=== PATIENT | male | born 1965 | race Caucasian/White ===

== ENCOUNTER 2022-09-24 22:07 | Emergency (ER) | payer MEDICAID ==
[~2022-09-24] VITALS: Ht 172.7 cm; Wt 68.0 kg
[2022-09-24 22:07] VITALS: BP 152/100
--- NOTE | 2022-09-24 22:07 | NUR ---
SIGIFREDO ORDONEZM MOTEL WITH C/O OS PAIN. PT WAS GOING TO PLUCK A NOSE HAIR AND MISSED, ACCIDENTALLY POKING SELF IN EYE. INCIDENT OCCURED THIS AM. PT KEEPING OS CLOSED
--- NOTE | 2022-09-24 22:11 | NUR ---
BIBA TO BED #12
[2022-09-24] MEDS ORDERED: TETRACAINE HCL/PF 0.5% OPTH 4 ML BTL OP ONE (22:55)
[2022-09-24] MEDS ORDERED: FLUORESCEIN OPTH STRIP 1 MG OP ONE (22:55)
[2022-09-24] MEDS ORDERED: ERYT5OIN51 OP (23:41)
[2022-09-24] MEDS ORDERED: IBUP-2213 PO (23:42)
[2022-09-24] MEDS ORDERED: ACET-10509 PO (23:42)
== END 2022-09-24 23:50 | disposition home or self-care (01) ==
LOC: MED 22:07
DX: S05.02XA Injury of conjunctiva and corneal abrasion without foreign body, left eye, initial encounter (principal); Z79.899 Other long term (current) drug therapy; W50.4XXA Accidental scratch by another person, initial encounter; Y93.89 Activity, other specified; Y92.89 Other specified places as the place of occurrence of the external cause; Y99.8 Other external cause status
CPT/HCPCS: 99283

== ENCOUNTER 2023-09-04 01:05 | Emergency (ER) | payer MEDICAID ==
[~2023-09-04] VITALS: Ht 172.7 cm; Wt 68.0 kg
[2023-09-04 01:05] VITALS: BP 132/90; PULSE 92; RESP 17; TEMP 98.2; O2SAT 98
[~2023-09-04 01:05] MED LIST: ACET-10509 PO; ERYT5OIN51 OP; IBUP-2213 PO
[2023-09-04 01:44] LABS: BASOPHILS % (AUTO) 0.7 % (0.0-2.0); EOSINOPHILS # (AUTO) 0.1 K/uL (0-0.4); EOSINOPHILS % (AUTO) 2.4 % (0.0-4.0); HEMATOCRIT 37.5 % (36-52); HEMOGLOBIN 12.8 g/dL (12.0-18.0); LYMPHOCYTES # (AUTO) 1.4 K/uL (2.0-11.5); LYMPHOCYTES % (AUTO) 34.4 % (20.5-51.1); MEAN CORPUSCULAR HEMOGLOBIN 32 pg (27-31); MEAN CORPUSCULAR HGB CONC 34 g/dL (33-37); MEAN CORPUSCULAR VOLUME 92.2 fL (80-94); MONOCYTES # (AUTO) 0.4 K/uL (0.8-1.0); MONOCYTES % (AUTO) 9.7 % (1.7-9.3); NEUTROPHILS # (AUTO) 2.1 K/uL (1.8-7.7); NEUTROPHILS % (AUTO) 52.8 % (42.2-75.2); PLATELET COUNT (AUTO) 121 K/uL (140-450); RED BLOOD CELL COUNT(AUTO) 4.07 MIL/uL (4.20-6.10); RED CELL DISTRIBUTION WIDTH 13.5 % (11.6-13.7)
[2023-09-04 01:57] LABS: ALBUMIN 3.6 g/dL (3.4-5.0); ANION GAP 9.7 (8-16); CARBON DIOXIDE 26.9 mmol/L (21-32); POTASSIUM 3.6 mmol/L (3.5-5.1); TOTAL BILIRUBIN 0.7 mg/dL (0.0-1.0); TOTAL PROTEIN, SERUM 9.1 g/dL (6.4-8.2)
[2023-09-04 02:01] LABS: LACTIC ACID 0.7 mmol/L (0.4-2.0)
[2023-09-04 03:41] LABS: APPEARANCE,URINE CLEAR (CLEAR); BILIRUBIN,URINE NEGATIVE (NEGATIVE); BLOOD, URINE NEGATIVE (NEGATIVE); COLOR,URINE YELLOW (YELLOW); LEUKOCYTE ESTERASE ,URINE NEGATIVE (NEGATIVE); NITRITE, URINE NEGATIVE (NEGATIVE); PROTEIN,URINE NEGATIVE (NEGATIVE); UGLUCOSE NEGATIVE (NEGATIVE); UROBILINOGEN,URINE 0.2 EU/dL (0.2 - 1)
[2023-09-04 04:03] VITALS: BP 136/88; PULSE 76; RESP 17; TEMP 97.6; O2SAT 99
== END 2023-09-04 04:00 | disposition home or self-care (01) ==
LOC: MED 01:05
DX: K40.90 Unilateral inguinal hernia, without obstruction or gangrene, not specified as recurrent (principal); Z79.899 Other long term (current) drug therapy
CPT/HCPCS: 36415; 80053; 81003; 83605; 83690; 85025; 87040; 99283